=== PATIENT | male | born 1980 | race Caucasian/White ===

== ENCOUNTER 2016-10-15 18:28 | Emergency (ER) | payer OTHER ==
[~2016-10-15] VITALS: Ht 180.3 cm; Wt 87.1 kg
[~2016-10-15 18:28] MED LIST: ANTIVERT25 MG PO; AUGMENTIN 875 M1 TAB PO; BENZONATATE100 M1 PO; FLONASE ALLERG9.9 ML NS; IMODIUM2 MG PO; KEFLEX 250MG C250 MG PO; METRONIDAZOLE500 MG PO; MOTRIN800 MG PO; ZITHROMAX250 M2 PO; ZOFRAN ODT4 MG PO
[2016-10-15 18:44] VITALS: BP 108/70
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
[2016-10-15 20:13] LABS: ABSOLUTE BASOPHIL COUNT 0 /CUMM (0.0-0.2); ABSOLUTE EOSINOPHIL COUNT 0.1 /CUMM (0.0-0.7); ABSOLUTE GRANULOCYTE CT 6.5 /CUMM (1.4-6.5); ABSOLUTE LYMPH COUNT 3.1 /CUMM (1.2-3.4); ABSOLUTE MONOCYTE COUNT 1.1 /CUMM (0.10-0.60); BASOPHIL % 0.4 % (0.0-2.0); EOSINOPHIL % 0.7 % (0-5); GRANULOCYTE % 60.4 % (42.2-75.2); MEAN CORPUSCULAR HGB 30.5 PG (27.0-31.0); MEAN CORPUSCULAR VOLUME 92.3 FL (80.0-94.0); MEAN PLATELET VOLUME 7.5 FL (7.4-10.4); PLATELET COUNT 337 /CUMM (130-400); RBC DISTRIBUTION WIDTH 13.9 % (11.5-14.5); RED BLOOD CELL CT 4.88 /CUMM (4.70-6.10); WHITE BLOOD CELL COUNT 10.7 /CUMM (4.8-10.8)
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
[2016-10-15] MEDS ORDERED: NAPROSYN500 M1 PO (21:23)
== END 2016-10-15 21:50 ==
LOC: ERH 18:28
PROVIDERS: Physician Assistant
DX: R10.31 Right lower quadrant pain (principal)
CPT/HCPCS: 72100; 74177; 96374; J1200